=== PATIENT | female | born 2000 | race Caucasian/White ===

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

== ENCOUNTER 2021-02-27 14:25 | Emergency (ER) | payer OTHER ==
[~2021-02-27] VITALS: Ht 157.5 cm; Wt 72.7 kg
[2021-02-27 14:36] VITALS: BP 130/87
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
[2021-02-27] MEDS ORDERED: IBUPROFEN 600 MG TABLET. PO ONE (15:35)
[2021-02-27] MEDS: IBUPROFEN 600 MG TABLET. PO ONE (15:38)
== END 2021-02-27 15:42 | disposition home or self-care (01) ==
LOC: ER 14:25
DX: S50.12XA Contusion of left forearm, initial encounter (principal); Z88.1 Allergy status to other antibiotic agents; Z88.8 Allergy status to other drugs, medicaments and biological substances; W22.01XA Walked into wall, initial encounter; Y93.89 Activity, other specified; Y92.89 Other specified places as the place of occurrence of the external cause; Y99.8 Other external cause status
CPT/HCPCS: 73090; 99283